=== PATIENT | male | born 1990 | race Caucasian/White ===

== ENCOUNTER 2020-01-10 12:04 | Emergency (ER) | payer BC ==
[~2020-01-10] VITALS: Ht 170.2 cm; Wt 68.0 kg
[~2020-01-10 12:04] MED LIST: CELEXA10 MG PO; CIPROFLOXACIN500 M1 PO; FLAGYL500 MG PO; NORCO 5-325 TA1 EACH PO; OMEPRAZOLE40 MG PO; PREDNISONE 10 M10 MG PO; TYLENOL EXTRA500 MG PO
[2020-01-10 13:05] LABS: ABSOLUTE EOSINOPHILS 0.1 thou/uL (0.0-0.7); ABSOLUTE LYMPHOCYTES 1.8 thou/uL (0.8-5.3); ABSOLUTE MONOCYTES 0.4 thou/uL (0.0-1.2); ABSOLUTE NEUTROPHILS 2.5 thou/uL (1.6-8.1); BASOPHILS 0.4 %; EOSINOPHILS 2.9 %; HEMATOCRIT 42.4 % (42.0-52.0); HEMOGLOBIN 14.9 gm/dL (14.0-18.0); LYMPHOCYTES 36.8 %; MCH 29.7 pg (26.0-34.0); MCHC 35.2 g/dL (28.0-37.0); MCV 84.5 fL (80.0-100.0); MONOCYTES 7.4 %; NUCLEATED RBCS 0 /100WBC; PLATELET COUNT* 235 thou/uL (150-400); POLYS 52.5 %; RBC 5.02 mil/uL (4.50-6.00); RDW-CV 13.1 % (10.5-14.5); WBC 4.9 thou/uL (4.0-11.0)
[2020-01-10 13:11] LABS: URINE BILIRUBIN NEGATIVE (Negative); URINE BLOOD NEGATIVE (Negative); URINE CLARITY CLEAR; URINE COLOR YELLOW; URINE GLUCOSE-RANDOM NEGATIVE (Negative); URINE KETONES NEGATIVE (Negative); URINE LEUKOCYTES-REFLEX NEGATIVE (Negative); URINE NITRITE-REFLEX NEGATIVE (Negative); URINE PROTEIN NEGATIVE (Negative); URINE SPECIFIC GRAVITY >= 1.030 (1.005-1.030); URINE UROBILINOGEN 0.2 E.U./dl (0.2-1.0)
[2020-01-10 13:15] LABS: CALCIUM 8.8 mg/dL (8.5-10.1); CREATININE 1.1 mg/dL (0.6-1.3)
[2020-01-10 13:19] LABS: ALBUMIN 3.9 g/dL (3.4-5.0); TOTAL BILIRUBIN 0.5 mg/dL (<0.1-1.0); TOTAL PROTEIN 6.7 g/dL (6.4-8.2)
[2020-01-10] MEDS ORDERED: CARAFATE1 GM PO (15:47)
[2020-01-10] MEDS ORDERED: PROTONIX 20 MG20 M1 PO (15:47)
[2020-01-10 16:02] VITALS: BP 124/86
--- NOTE | 2020-01-10 16:19 | EKG ---
[place] [address] ELECTROCARDIOGRAM REPORT Name: NATALI VELAZQUEZ Room: [facility]#: [id number] Admission: 01/10/20 Attend Phys: Discharge: 01/10/20 Date of : 86 Date of Service: 01/10/20 1305 Report #: [id number] THIS REPORT FOR: //name// [facility] ED Test Date: 2020-01-10 Test Time: 13:05:07 Pat Name: NATALI VELAZQUEZ Department: Room: Gender: Clinic Charge Nurse: [facility] : 1990 Requested By: Padma Holley Order Number: [id number] MD: Deni Bell Measurements Intervals [place] Rate: 59 P: 56 IA: 175 QRS: 61 QRSD: 103 T: 28 QT: 412 QTc: 409 Interpretive Statements Sinus rhythm ST elev, probable normal early repol pattern No previous ECG available for comparison Electronically Signed On 01-10-2020 16:17:34 CDT by Deni Bell [email or web address] <ELECTRONICALLY SIGNED> By: Deni Bell MD, [facility] 01/10/20 1617 1305 1305 Deni Bell MD, [facility] /EPI
[2020-01-10] MEDS ORDERED: ONDANSETRON HCL4 M2 PO ×2 (19:27→19:30)
[2020-01-10] MEDS ORDERED: NORCO 5-325 TA1 EAC1 PO ×2 (19:27→19:29)
== END 2020-01-10 16:03 | disposition home or self-care (01) ==
LOC: M.ERS 12:04
PROVIDERS: Nurse Practitioner Family
DX: R10.13 Epigastric pain (principal); K21.9 Gastro-esophageal reflux disease without esophagitis; F41.9 Anxiety disorder, unspecified

== ENCOUNTER 2020-01-10 17:11 | Emergency (ER) | payer BC ==
[~2020-01-10] VITALS: Ht 170.2 cm; Wt 68.0 kg
[~2020-01-10 17:11] MED LIST changes: +CARAFATE1 GM PO; +PROTONIX 20 MG20 M1 PO
[2020-01-10] MEDS ORDERED: ONDANSETRON HCL4 M2 PO ×2 (19:27→19:30)
[2020-01-10] MEDS ORDERED: NORCO 5-325 TA1 EAC1 PO ×2 (19:27→19:29)
[2020-01-10 19:40] VITALS: BP 123/86
== END 2020-01-10 19:41 | disposition home or self-care (01) ==
LOC: M.ERS 17:11
DX: K80.10 Calculus of gallbladder with chronic cholecystitis without obstruction (principal); K21.9 Gastro-esophageal reflux disease without esophagitis

== ENCOUNTER → 2020-01-23 | Outpatient (CLI) | payer BC ==
[~2020-01-23] MED LIST changes: +NORCO 5-325 TA1 EAC1 PO; +ONDANSETRON HCL4 M2 PO
== END ==
LOC: M.NUC 13:00
DX: K80.50 Calculus of bile duct without cholangitis or cholecystitis without obstruction (principal)

== ENCOUNTER 2020-02-15 09:10 | Emergency (ER) | payer BC ==
[~2020-02-15] VITALS: Ht 170.2 cm; Wt 68.0 kg
[2020-02-15 09:49] LABS: URINE BILIRUBIN NEGATIVE (Negative); URINE BLOOD NEGATIVE (Negative); URINE CLARITY CLEAR; URINE COLOR YELLOW; URINE GLUCOSE-RANDOM NEGATIVE (Negative); URINE KETONES NEGATIVE (Negative); URINE LEUKOCYTES-REFLEX NEGATIVE (Negative); URINE NITRITE-REFLEX NEGATIVE (Negative); URINE PROTEIN NEGATIVE (Negative); URINE UROBILINOGEN 0.2 E.U./dl (0.2-1.0)
[2020-02-15 09:50] LABS: ABSOLUTE EOSINOPHILS 0.2 thou/uL (0.0-0.7); ABSOLUTE LYMPHOCYTES 2.7 thou/uL (0.8-5.3); ABSOLUTE MONOCYTES 0.4 thou/uL (0.0-1.2); ABSOLUTE NEUTROPHILS 2.6 thou/uL (1.6-8.1); BASOPHILS 0.4 %; EOSINOPHILS 2.6 %; HEMATOCRIT 42.9 % (42.0-52.0); HEMOGLOBIN 15.2 gm/dL (14.0-18.0); LYMPHOCYTES 46.6 %; MCH 29.9 pg (26.0-34.0); MCHC 35.4 g/dL (28.0-37.0); MCV 84.4 fL (80.0-100.0); MONOCYTES 6.3 %; MPV 7.3 fl. (7.2-11.1); NUCLEATED RBCS 0 /100WBC; PLATELET COUNT* 252 thou/uL (150-400); POLYS 44.1 %; RBC 5.09 mil/uL (4.50-6.00); RDW-CV 13.3 % (10.5-14.5); WBC 5.9 thou/uL (4.0-11.0)
[2020-02-15 10:01] LABS: POTASSIUM 4.1 mmol/L (3.5-5.1)
[2020-02-15 10:06] LABS: ALBUMIN 4.3 g/dL (3.4-5.0); TOTAL BILIRUBIN 0.5 mg/dL (<0.1-1.0); TOTAL PROTEIN 7.3 g/dL (6.4-8.2)
[2020-02-15] MEDS ORDERED: ZOFRAN ODT4 MG SUBLING (10:57)
[2020-02-15] MEDS ORDERED: NORCO 5-325 TA1 EAC1 PO (10:57)
[2020-02-15 11:05] VITALS: BP 129/83
== END 2020-02-15 11:07 | disposition still patient (30) ==
LOC: M.ERS 09:10
PROVIDERS: Family Medicine
DX: K80.50 Calculus of bile duct without cholangitis or cholecystitis without obstruction (principal); F41.9 Anxiety disorder, unspecified; K21.9 Gastro-esophageal reflux disease without esophagitis; F41.0 Panic disorder [episodic paroxysmal anxiety]

== ENCOUNTER 2020-02-17 08:40 | Inpatient (IN) | payer BC ==
[~2020-02-17] VITALS: Ht 170.2 cm; Wt 72.6 kg
[~2020-02-17 08:40] MED LIST changes: +ZOFRAN ODT4 MG SUBLING
[2020-02-17 08:50] VITALS: BP 139/83
[2020-02-17 09:18] LABS: ABSOLUTE EOSINOPHILS 0.1 thou/uL (0.0-0.7); ABSOLUTE LYMPHOCYTES 2.5 thou/uL (0.8-5.3); ABSOLUTE MONOCYTES 0.3 thou/uL (0.0-1.2); ABSOLUTE NEUTROPHILS 2.6 thou/uL (1.6-8.1); BASOPHILS 0.4 %; EOSINOPHILS 2.3 %; HEMATOCRIT 43.1 % (42.0-52.0); HEMOGLOBIN 15.4 gm/dL (14.0-18.0); LYMPHOCYTES 44.6 %; MCHC 35.8 g/dL (28.0-37.0); MCV 83.8 fL (80.0-100.0); MONOCYTES 6.3 %; NUCLEATED RBCS 0 /100WBC; PLATELET COUNT* 268 thou/uL (150-400); POLYS 46.4 %; RBC 5.15 mil/uL (4.50-6.00); RDW-CV 13.2 % (10.5-14.5); WBC 5.5 thou/uL (4.0-11.0)
[2020-02-17 09:30] LABS: CALCIUM 8.8 mg/dL (8.5-10.1); CREATININE 1.1 mg/dL (0.6-1.3); POTASSIUM 3.7 mmol/L (3.5-5.1)
[2020-02-17 09:34] LABS: ALBUMIN 4.4 g/dL (3.4-5.0); TOTAL BILIRUBIN 1.1 mg/dL (<0.1-1.0); TOTAL PROTEIN 7.3 g/dL (6.4-8.2)
[2020-02-17 11:04] VITALS: BP 121/101
[2020-02-17 11:45] VITALS: BP 122/86
--- NOTE | 2020-02-17 12:05 | NUR ---
PT ADMITTED WITH RUQ ABD PAIN. SURGERY CONSULTED IN ER. PT ASSESSED. PT ORIENTED TO ROOM. PT EDUCATED ON VISITOR GUIDELINES AND RESTRICTIONS. FLUIDS RUNNING ORDERED. PT C/O PAIN BUT DENIED ANY NEED FOR PAIN MEDS AT THIS TIME. PT EDUCATED ON USING CALL LIGHT WHEN NEEDING PAIN MEDS. WILL CONTINUE TO MONITOR.
[2020-02-17 17:25] VITALS: BP 130/86
--- NOTE | 2020-02-17 17:35 | NUR ---
PT REMAINED ALERT AND ORIENTED. PT RESTING IN BED. SURGERY TOMORROW. NPO AFTER MIDNIGHT. PT DENIES ANY NEEDS AT THIS TIME. FALL RISK PRECAUTIONS IN PLACE. HOURLY ROUNDING COMPLETED. WILL CONTINUE TO MONITOR.
[2020-02-17 20:21] VITALS: BP 109/65
[2020-02-18] VITALS (7 sets, daily range): BP systolic 98–121; BP diastolic 67–76
[2020-02-18 05:57] LABS: HEMATOCRIT 38.8 % (42.0-52.0); HEMOGLOBIN 13.9 gm/dL (14.0-18.0); MCH 30.6 pg (26.0-34.0); MCHC 35.7 g/dL (28.0-37.0); MCV 85.5 fL (80.0-100.0); MPV 7.7 fl. (7.2-11.1); RBC 4.54 mil/uL (4.50-6.00); WBC 5.1 thou/uL (4.0-11.0)
[2020-02-18 05:59] LABS: ALBUMIN 3.6 g/dL (3.4-5.0); CALCIUM 7.9 mg/dL (8.5-10.1); CREATININE 1.1 mg/dL (0.6-1.3); TOTAL BILIRUBIN 1.1 mg/dL (<0.1-1.0)
--- NOTE | 2020-02-18 06:08 | NUR ---
PATIENT NPO SINCE MIDNIGHT. FLUIDS RUNNING ALL SHIFT AND RECEIVED ABX SCHEDULED. NO REPORTS OF PAIN OR NAUSEA. ALERT AND ORIENTED AND UP AD PERRY. PLAN IS FOR [facility] SURGERY TODAY. WILL CONTINUE TO FOLLOW PLAN OF CARE.
--- NOTE | 2020-02-18 12:00 | NUR ---
PT. OFF FLOOR FOR SURGERY. CM WILL SEE TOMORROW.
--- NOTE | 2020-02-18 17:25 | NUR ---
PT ALERT AND ORIENTED. PT BACK FROM SURGERY. PT CAN GO HOME IF TOLERATING FOOD AND PAIN CONTROLLED. MEDS GIVEN ORDERED. TRAY ORDERED. PT RESTING IN BED. WILL CONTINUE TO MONITOR.
[2020-02-18] MEDS ORDERED: OXYCODONE HCL 55 MG PO (17:33)
[2020-02-19] VITALS: BP 130/81
[2020-02-19 04:00] VITALS: BP 127/69
--- NOTE | 2020-02-19 06:11 | NUR ---
PATIENT UP AD PERRY AND WALKING HALLS. DID HAVE SOME NAUSEA OVERNIGHT THAT HAS SUBSIDED. HAD AN OXY IR 5MG FOR PAIN AT 0245. TOLERATING FOOD AND DRINKS WELL. SAYS HE FEELS GAS AND BLOATED SO HE WAS ENCOURAGED TO AMBULATE OFTEN. LAST BM 02/16. ON ROOM AIR AND INCISION SITES CLEAR OF DRAINAGE OR SS OF INFECTION. MAY D/C TODAY. WILL CONTINUE TO FOLLOW PLAN OF CARE.
[2020-02-19 09:42] VITALS: BP 127/73
--- NOTE | 2020-02-19 12:52 | NUR ---
SPOKE WITH PT.AND EARLIER ABOUT FMLA. HE HAD QUESTIONS ON HOW TO OBTAIN. 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 THEY WILL SEND IT TO HIM OR HAVE COME GT THE PAPERWORK. HE WILL NEED TO TAKE TO 'S OFFICE AND THEY WILL FILL THEM OUT FOR HIM TO SEND BACK IN. HE WILL AT LEAST BE OFF WORK FOR ONE WEEK UNTIL FOLLOW UP APPT. 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 TOLD HIM THAT IT WOULD BE UP TO THE AND HE WOULD DISCUSS WITH HIM AT FOLLOW UP APPT.
--- NOTE | 2020-02-19 14:03 | NUR ---
ASSUMED CARE OF PATIENT AT APPROX 0730. ALERT AND OREINTED X4. ASSESSMENT COMPLETED AND CHARTED. VSS ON ROOM AIR. NO COMPLAINTS OF PAIN OR NAUSEA. COMPLAINT OF SOME DISCOMFORT IN SHOULDERS BUT NOT ENOUGH TO REQUIRE PAIN MEDICATION. PATIENT UP AD PERRY IN THE ROOM AND WALKING THE HALLS. PATIENT DISCHARGED AT 1330 WITH ALL PERSONAL BELONGINGS, PRESCRIPTION AND DISCHARGE INFORMATION.
--- NOTE | 2020-02-22 10:26 | OP ---
[address] [address] OPERATIVE REPORT Name: NATALI VELAZQUEZ Room: [address] IN [place].R.#: [id number] Admission: 02/17/20 Attend Phys: Nestor Perez Discharge: 02/19/20 Date of : [birth year] Report #: [id number] THIS REPORT FOR: //name// cc: BINH Rainey family physician/PCP BINH Rainey family physician/PCP ~ THIS REPORT FOR: //name// CC: [facility] physician/PCP Gwyn Shahid DICTATED BY: Sunny Reynaga DO PREOPERATIVE DIAGNOSIS: Cholecystitis. POSTOPERATIVE DIAGNOSIS: Chronic cholecystitis with cholelithiasis. SURGEON: Gwyn Shahid DO CO-SURGEON: Sunny Reynaga DO, PGY3 HIDE BUFFER: None. ANESTHESIA: General and regional. FINDINGS: Multiple adhesions to the gallbladder with large gallstones within the gallbladder. ESTIMATED BLOOD LOSS: 5. SPECIMEN: Gallbladder. COMPLICATIONS: None. HISTORY OF PRESENT ILLNESS: The patient is a 29-year-old male who presented to the hospital with persistent right upper quadrant pain and decreased p.o. intake. Workup to this point had revealed likely cholecystitis. We elected to proceed with laparoscopic cholecystectomy. Risks, benefits, and alternatives discussed at length and he agreed to proceed with surgery. DESCRIPTION OF PROCEDURE: After consent was obtained, the patient was taken to the operating room and placed in supine position. SCDs applied to bilateral lower extremities. A safety belt placed across the patient's waist. General endotracheal anesthesia was administered without any complication. Preoperative antibiotics were given for surgical prophylaxis. The patient received bilateral TAP blocks by Anesthesia prior to surgery. The patient was prepped and draped in the standard sterile fashion. A timeout [place] [address] OPERATIVE REPORT Name: NATALI VELAZQUEZ Room: [address]#: [id number] Admission: 02/17/20 Attend Phys: Nestor Perez Discharge: 02/19/20 Date of : 86 Report #: [id number] and procedure. An 11 blade scalpel was used to make an infraumbilical transverse incision. Electrocautery was used for hemostasis and two S retractors were used to bluntly dissect down to the level of fascia. Once fascia was encountered, it was grasped between 2 Kochers and elevated. The fascia was scored with electrocautery and a hemostat was used to bluntly enter the peritoneum. Two stitches of 0 Vicryl were placed on either side of the fascia. A 5 mm Sussy trocar was inserted into the abdomen. Insufflation was initiated without any complication. Camera was inserted in the abdomen. Intra-abdominal contents were inspected. Gallbladder could be seen underneath the edge of the liver. The patient was placed in reverse Trendelenburg and rotated towards the left. Another 5 mm trocar was placed subxiphoid under direct visualization and two 5 mm trocars were placed in the right upper quadrant under direct visualization. The gallbladder was grasped and elevated. Omental adhesions were taken down from Kamla's pouch using electrocautery. Once the adhesions were off of the gallbladder, Kamla's pouch was taken medially and the lateral gallbladder peritoneum was taken down using electrocautery. Next, Kamla's pouch was taken laterally and the medial gallbladder peritoneum was taken down using electrocautery. Next, we isolated the cystic artery and cystic duct. Electrocautery was used to score the visceral peritoneum overlying the gallbladder. This was carried lateral upper side of the gallbladder. Some of the fibrous attachments were taken off from the medial edge of the gallbladder. [place] dissector was used to circumferentially dissect out the cystic duct. Once the duct was isolated and could be seen going up into the gallbladder, attention was turned towards isolating the cystic artery. Once the artery was circumferentially dissected out, both structures could be seen going up into the gallbladder. Critical view of safety was obtained. Two and only two structures could be seen going directly into the gallbladder. Two Weck clips were placed on the proximal cystic duct and one on the distal cystic duct and one Weck clip was placed on the proximal and one on the distal cystic artery. Both structures were cut between the proximal and distal clips with endoshears. There was a large artery that appeared to be coursing along the bottom part of the gallbladder. This was carefully avoided as we dissected the gallbladder off of the edge of the liver. At one point, there did appear that this artery did dive into the gallbladder, raising suspicion that this may be a posterior cystic artery. This artery was dissected out high up on the gallbladder and two clips were placed on this and it was cut with endoshears. Gallbladder was then completely dissected off of the bed of the liver using hook electrocautery. Gallbladder was placed in laparoscopic EndoCatch bag. Liver bed was inspected for bleeding. There was some oozing near the previous clips and two more clips were placed and all hemostasis was completely ensured. Right upper quadrant was irrigated and all fluid was suctioned out. The cystic artery and duct clips were visualized again and were [place] [address] OPERATIVE REPORT Name: NATALI VELAZQUEZ Room: [address]#: [id number] Admission: 02/17/20 Attend Phys: Nestor Perez Discharge: 02/19/20 Date of : 86 Report #: [id number] All trocars were removed under direct visualization. Insufflation was released from the abdomen. The gallbladder and its contents were removed from the infraumbilical trocar site. There were large gallstones within the gallbladder. The infraumbilical fascia was closed with one stitch of 0 Vicryl in a [id number]-oy-dwumr fashion and all skin incisions were closed with 4-0 Monocryl in a subcuticular fashion. Skin glue was applied to all incisions. The patient was then awoken from general anesthesia and transferred to PACU in stable condition. <ELECTRONICALLY SIGNED> By: Gwyn Shahid DO 02/22/20 1026 1605 1829Gwyn Shahid DO /nt
== END 2020-02-19 13:30 | disposition home or self-care (01) | DRG 419 ==
LOC: M.ERS 08:40 → M.ORTHSURG 09:28 → M.TBA-ER 09:28 → M.ORTHSURG 11:00
PROVIDERS: Family Medicine; ADMIT Surgery; ATTEND Surgery
PROC: 0FT44ZZ Resection of Gallbladder, Percutaneous Endoscopic Approach (ICD-10-PCS; principal; 2020-02-18)
DX: K80.12 Calculus of gallbladder with acute and chronic cholecystitis without obstruction (principal); F41.9 Anxiety disorder, unspecified; K21.9 Gastro-esophageal reflux disease without esophagitis; K80.50 Calculus of bile duct without cholangitis or cholecystitis without obstruction; F17.210 Nicotine dependence, cigarettes, uncomplicated; Z79.899 Other long term (current) drug therapy

== ENCOUNTER 2020-05-20 11:08 | Emergency (ER) | payer BC ==
[~2020-05-20] VITALS: Ht 170.2 cm; Wt 72.6 kg
[~2020-05-20 11:08] MED LIST changes: +OXYCODONE HCL 55 MG PO
[2020-05-20 12:53] VITALS: BP 123/88
== END 2020-05-20 13:00 | disposition home or self-care (01) ==
LOC: M.ERS 11:08
DX: R51 Headache (principal); K21.9 Gastro-esophageal reflux disease without esophagitis; Z90.49 Acquired absence of other specified parts of digestive tract

== ENCOUNTER 2020-09-14 14:51 | Emergency (ER) | payer OTHER ==
[~2020-09-14] VITALS: Ht 170.2 cm; Wt 72.6 kg
[2020-09-14] MEDS ORDERED: FLEXERIL PO (15:09)
[2020-09-14] MEDS ORDERED: HYDROCODON-ACE1 EAC7 PO (15:09)
[2020-09-14 15:29] VITALS: BP 125/81
== END 2020-09-14 15:31 | disposition home or self-care (01) ==
LOC: M.ERS 14:51
DX: M62.838 Other muscle spasm (principal); K21.9 Gastro-esophageal reflux disease without esophagitis; Z90.89 Acquired absence of other organs

== ENCOUNTER 2021-02-22 07:35 | Emergency (ER) | payer OTHER ==
[~2021-02-22] VITALS: Ht 170.2 cm; Wt 72.6 kg
[~2021-02-22 07:35] MED LIST changes: +FLEXERIL PO; +HYDROCODON-ACE1 EAC7 PO
[2021-02-22] MEDS ORDERED: TESTOSTERONE (07:43)
[2021-02-22 08:06] LABS: ABSOLUTE EOSINOPHILS 0.2 thou/uL (0.0-0.7); ABSOLUTE LYMPHOCYTES 2.3 thou/uL (0.8-5.3); ABSOLUTE MONOCYTES 0.4 thou/uL (0.0-1.2); ABSOLUTE NEUTROPHILS 3.1 thou/uL (1.6-8.1); BASOPHILS 0.6 %; EOSINOPHILS 2.7 %; HEMATOCRIT 47.3 % (42.0-52.0); HEMOGLOBIN 16.7 gm/dL (14.0-18.0); LYMPHOCYTES 37.8 %; MCH 30.3 pg (26.0-34.0); MCHC 35.3 g/dL (28.0-37.0); MCV 85.8 fL (80.0-100.0); MONOCYTES 6.5 %; MPV 6.9 fl. (7.2-11.1); NUCLEATED RBCS 0 /100WBC; PLATELET COUNT* 267 thou/uL (150-400); POLYS 52.4 %; RBC 5.51 mil/uL (4.50-6.00); RDW-CV 13.3 % (10.5-14.5)
[2021-02-22 08:14] LABS: CALCIUM 8.7 mg/dL (8.5-10.1); CREATININE 1.4 mg/dL (0.6-1.3); POTASSIUM 3.8 mmol/L (3.5-5.1)
[2021-02-22 08:18] LABS: ALBUMIN 4.5 g/dL (3.4-5.0); TOTAL BILIRUBIN 0.6 mg/dL (<0.1-1.0); TOTAL PROTEIN 7.6 g/dL (6.4-8.2)
[2021-02-22] MEDS ORDERED: ZOFRAN ODT4 MG DISSOLVE (08:45)
[2021-02-22 09:18] LABS: URINE BILIRUBIN NEGATIVE (Negative); URINE BLOOD NEGATIVE (Negative); URINE CLARITY CLEAR; URINE COLOR YELLOW; URINE GLUCOSE-RANDOM NEGATIVE (Negative); URINE KETONES 1+ (Negative); URINE LEUKOCYTES-REFLEX NEGATIVE (Negative); URINE NITRITE-REFLEX NEGATIVE (Negative); URINE PROTEIN NEGATIVE (Negative); URINE SPECIFIC GRAVITY 1.025 (1.005-1.030); URINE UROBILINOGEN 0.2 E.U./dl (0.2-1.0)
[2021-02-22 09:41] VITALS: BP 113/58
== END 2021-02-22 09:44 | disposition home or self-care (01) ==
LOC: M.ERS 07:35
PROVIDERS: Family Medicine
DX: R11.2 Nausea with vomiting, unspecified (principal); K21.9 Gastro-esophageal reflux disease without esophagitis; Z90.89 Acquired absence of other organs